=== PATIENT | female | born 1955 | race Caucasian/White ===

== ENCOUNTER 2021-10-12 19:18 | Observation (INO) ==
[2021-10-13] MEDS ORDERED: Naloxone 0.4 MG/ML INJ IVP PRN (03:51)
[2021-10-13] MEDS ORDERED: Ondansetron 4 MG/2 ML VIAL IVP PRN (03:51)
[2021-10-13] MEDS ORDERED: D5% in Water 1,000 ML IVC PRN (04:13)
[2021-10-13] MEDS ORDERED: Dextrose Gel 15 GM/37.5 ML TUBE PO PRN ×2 (04:13)
[2021-10-13] MEDS ORDERED: *HR* Dextrose 50 % in Water (Syg) 50 ML SYRINGE IVP PRN (04:13)
[2021-10-13 05:00] LABS: Hemoglobin 14.4 g/dL (11.5-15.4); Mean Corpuscular HGB Conc 33.5 g/dL (31.6-35.5); Mean Corpuscular Hemoglobin 34.3 pg (28.0-33.3); Mean Corpuscular Volume 102.4 fL (83.0-100.0); Mean Platelet Volume 9.2 fL (9.4-12.4); Platelet Count 131 K/mcL (140-400); Red Cell Distribution Width 14.3 % (11.5-14.5); White Blood Count 5.3 K/mcL (4.3-11.1)
[2021-10-13 05:11] LABS: BUN/Creatinine Ratio 14 (6-26); Blood Urea Nitrogen 8 mg/dL (8-23); Calcium 8.9 mg/dL (8.6-10.3); Carbon Dioxide 23 mEq/L (23-29); Chloride 103 mEq/L (98-107); Glucose 142 mg/dL (70-105); Osmolality,Calculated 279 (280-300); Potassium 3.7 mEq/L (3.5-5.1); Sodium 134 mEq/L (136-145); eGFR For African Americans > 60 (> 60); eGFR For Non-African Americans > 60 (> 60)
[2021-10-13] MEDS: Acetaminophen 325 MG TABLET PO PRN ×2 (06:23→22:58)
[2021-10-13] MEDS: *HR* Heparin 5,000 UNIT/ML VIAL SQ SCH ×3 (06:24→22:58)
[2021-10-13] MEDS: Insulin LISPRO 300 UNITS/3 ML VIAL SUBQ SCH ×3 (10:03→18:51)
[2021-10-13] MEDS ORDERED: ALPRAZolam 0.5 MG TABLET PO PRN (18:16)
[2021-10-13] MEDS ORDERED: Budesonide/Formoterol 160/4.5 1 PUFF INH IH PRN (18:16)
[2021-10-13] MEDS ORDERED: Insulin LISPRO 300 UNITS/3 ML VIAL SUBQ SCH (21:00)
[2021-10-13] MEDS: ARMODAFINIL 50 MG PO SCH (22:58)
[2021-10-14 04:04] LABS: Basophils % 0.8 %; Eosinophils % 0.2 %; Hematocrit 45.6 % (35.3-44.9); Hemoglobin 15.2 g/dL (11.5-15.4); Immature Granulocytes % 0.2 % (0-4); Lymphocytes # 1.3 K/mcL (0.6-4.6); Lymphocytes % 27.1 %; Mean Corpuscular HGB Conc 33.3 g/dL (31.6-35.5); Mean Corpuscular Hemoglobin 33.5 pg (28.0-33.3); Mean Corpuscular Volume 100.4 fL (83.0-100.0); Mean Platelet Volume 9.1 fL (9.4-12.4); Monocytes # 0.8 K/mcL (0.0-1.3); Neutrophils # 2.7 K/mcL (1.6-8.9); Platelet Count 168 K/mcL (140-400); Red Blood Count 4.54 M/mcL (3.82-4.97); Red Cell Distribution Width 14.2 % (11.5-14.5); Segmented Neutrophils % 55.7 %; White Blood Count 4.8 K/mcL (4.3-11.1)
[2021-10-14 04:28] LABS: BUN/Creatinine Ratio 21 (6-26); Blood Urea Nitrogen 12 mg/dL (8-23); Carbon Dioxide 23 mEq/L (23-29); Chloride 100 mEq/L (98-107); Glucose 123 mg/dL (70-105); Magnesium 2.3 mg/dL (1.6-2.6); Osmolality,Calculated 279 (280-300); Potassium 3.6 mEq/L (3.5-5.1); Sodium 134 mEq/L (136-145); eGFR For African Americans > 60 (> 60); eGFR For Non-African Americans > 60 (> 60)
[2021-10-14] MEDS: *HR* Heparin 5,000 UNIT/ML VIAL SQ SCH (06:14)
[2021-10-14 07:15] VITALS: BP 118/79; PULSE 75; TEMP 98; O2SAT 95
[2021-10-14] MEDS: Insulin LISPRO 300 UNITS/3 ML VIAL SUBQ SCH (08:31)
[2021-10-14] MEDS ORDERED: rOPINIRole 1 MG TABLET PO SCH (09:00)
[2021-10-14] MEDS ORDERED: Bisoprolol/HCTZ 5/6.25 TABLET PO SCH (09:00)
[2021-10-14] MEDS ORDERED: FLUoxetine 20 MG CAPSULE PO SCH (09:00)
[2021-10-14] MEDS: ARMODAFINIL 50 MG PO SCH (09:45)
== END 2021-10-14 11:45 | disposition home or self-care (01) ==
LOC: 3NENU → SUATTDRO 10-13 03:09
PROVIDERS: ADMIT Internal Medicine; ATTEND Family Medicine